=== PATIENT | male | born 1990 | race Two or more races ===

== ENCOUNTER 2023-05-29 12:23 | Outpatient (CLI) | payer OTHER ==
--- NOTE | 2023-05-29 21:55 | SLEEP CARE CONSULTATION ---
Information from patient questionnaire entered by Shelley Bhardwaj. I have reviewed and concur with the information entered by Shelley Bhardwaj. This document represents the service I personally performed and the decisions made by me, Inna Branham MD, [facility]. History of Present Illness Service Date and Time: 05/29/2023 1223 Reason for Visit: New patient Chief Complaint: reports: Insomnia, Unrefreshed sleep, Snoring, Excessive daytime sleepiness, Observed pauses in breathing, Fatigue, Frequent awakenings at night Date of Onset: 2-3YRS Usual bedtime: 22-2300 Time it takes to fall asleep: 15-40MIN Snores at night: Yes Observed to quit breathing while asleep: Yes Sleeps alone due to snoring: No Number of times waking at night: 1 Reasons for waking at night: reports: Snoring, Other (NOISE, HEAR MYSELF SNORING OR HOLDING MY BREATH OR ITS NIGHTMARE) Toss, Turn, or Twitch while sleeping: Yes Recalls having dreams: Yes Usually gets out of bed at: 5-7AM Feels refreshed in the morning: No Morning headache: Yes Sleepy or fatigued during the day: Yes Ever fallen asleep while driving: Yes Takes day naps: Yes Dreams during day naps: No Prior sleep studies: No Additional HPI information: I had the pleasure of seeing Mr. Desai today regarding the possibility of him having a sleep disorder. As you know, he is a 33-year-old gentleman who complains of frequent awakenings, unrefreshed sleep, loud snore, observed apneas, and excessive daytime sleepiness for the past 2 3 years. He is from the [place] and would like to have it checked out whether he has any sleep disorders. The patient tells me that he normally goes to bed around 10 - 11 pm, and it takes him approximately 15 - 40 minutes to fall asleep. He has been told that he snores loudly and irregularly at night. He has also been observed to stop breathing in his sleep. His normally sleeps alone. He can recall waking up on the average of 0 - 1 time during the night. Most of the time he wakes up because of own snoring, choking, and having to gasp for air. There is a lot of tossing and turning in his sleep. He has somniloquy (sleep talking) or somnambulism (sleep walking). Generally, he can recall having dreams. In the morning he usually gets up out of the bed around 5 - 7 a.m. not feeling refreshed nor rested. He occasionally has a morning headache. During the day he complains of feeling sleepy and fatigued. His score on [place] Sleepiness Scale is 18 out of 24. He has fallen asleep while driving and has gone out of the minda. He usually takes a nap during the day after work. He reports having impaired concentration during the day. - Parasomnia Symptoms Ever been unable to move upon waking from sleep: Yes Walks in sleep: No Talks in sleep: Yes Ever acted out dreams in sleep: Yes Ever felt weak in the knees when startled or emotional: Yes Bothered by creepy, crawly, restless sensations in legs: Yes Problems with memory or concentration: Yes Subjective Initial [place] Sleepiness Scale score: 18 (05/29/23) Social History The patient's occupation is a AM. Patient is Single and lives in . Have you smoked in the past 12 months: No Alcohol use: Yes Alcohol amount and frequency: 2-4 DRINKS A MONTH Caffeine use: Yes Caffeine amount and frequency: 1-2 CUPS 4-5 DAYS A WEEK Family History Family history of sleep disordered breathing: Yes Family Hx Sleep Apnea: Father: Snoring, Sleep apnea - Untreated Allergies and Home Medications Known drug allergies: No Drug allergies reviewed: Yes Home medication list reviewed: Yes Review of Systems Weight gain over past 5 years: 15-20 Cardiovascular: denies: high blood pressure, palpitations, chest pain, irregular heart rate or pulse, leg or foot swelling, have to sleep sitting up, other Respiratory: denies: shortness of breath, wheeze, sputum production, chronic cough, other Gastrointestinal: denies: heartburn, difficulty swallowing, nausea, vomitting, diarrhea, abdominal pain, other Urinary: denies: incontinence, frequency, urgency, impotence, other Neurological: denies: headaches, seizure, head trauma, disorientation, speech dysfunction, gait or balance problems, fainting or unconsciousness, other Psychiatric: denies: Attention Deficit Hyperactivity, anxiety, depression, mood disorder, claustrophobia, other Ear/Nose/Throat: denies: nasal congestion, sinus problems, nose bleeds, dry mouth/throat, hoarseness, injury to nose, tonsillectomy, wisdom teeth removed, other Endocrine: denies: thyroid disease, history of goiter, sluggishness, too hot or cold, excessive thirst, increased appetite, increased urination, unexplained weakness, other Musculoskeletal: denies: joint pain, neck pain, back pain, joint swelling, muscle pain or cramping, mobility problems, other Immunologic: reports: allergies to food or environment. denies: sneezing, rash, itching, other Physical Exam Vital signs obtained and entered by: SHELLEY Spence MA Blood Pressure: 120/74 (LEFT ARM) Cuff size: regular Heart Rate: 58 O2 Saturation: 98 Height: 5 ft 7 in Weight: 175 lb Body Mass Index: 27.3 BMI Classification: Overweight Neck circumference: 15.25 Mood/affect: Normal HEENT: No craniofacial malformation Nostrils: patent to airflow Turbinates: normal Septum: midline Mouth and throat: narrow oropharynx Soft palate: long Hard palate: normal Uvula visualization: 50% Mallampati Class II Tongue: normal in size Tonsils: small Chin and jaw: normal size and position Neck: normal w/o lymphadenopathy or thyromegaly Heart: regular rate and rhythm Lungs: clear bilaterally Extremities: no edema or clubbing Neurologic: intact Impression and Plan IMPRESSION: 1. Obstructive Sleep Apnea-Hypopnea Syndrome, as suggested by history of loud and irregular snoring, observed cessation of breath while asleep, nocturnal choking, unrefreshed sleep, cognitive impairment, and daytime hypersomnolence. Narrow oropharynx and obesity are common predisposing factors for obstructive sleep apnea-hypopnea syndrome. I recommend proceeding to polysomnography to confirm the diagnosis and to assess severity. If he has significant sleep disordered breathing, a manual CPAP titration study will also be performed to find the optimal treatment pressure. I informed the patient of what the sleep studies involve and after some discussion, he agreed to proceed. Plan: 1. Schedule an in-laboratory polysomnography and return in 1 to 2 weeks after the study to discuss result and initiate therapy. Follow up with Sleep Care in: 1-2 months Visit Type: In Office Time Spent with Patient (minutes): 15 Provider Statement: I spent 100% of the Face to Face Visit with the patient with greater than 50% spent counseling the patient and coordination of care.
[2023-05-29 22:00] VITALS: BP 120/74; O2SAT 98
== END 2023-05-29 12:24 | disposition home or self-care (01) ==
LOC: SC 12:23
PROVIDERS: ATTEND Internal Medicine Pulmonary Disease
DX: R06.83 Snoring (principal); G47.8 Other sleep disorders; R06.81 Apnea, not elsewhere classified; G47.50 Parasomnia, unspecified; G47.10 Hypersomnia, unspecified; E66.3 Overweight; Z68.27 Body mass index [BMI] 27.0-27.9, adult
CPT/HCPCS: 99202; 99212

== ENCOUNTER 2023-06-20 20:32 | Outpatient (CLI) | payer OTHER | END 2023-06-20 20:33 | disposition home or self-care (01) | LOC: SC 20:32 | PROVIDERS: ATTEND Internal Medicine Pulmonary Disease | DX: R06.83 Snoring (principal); G47.8 Other sleep disorders; R06.81 Apnea, not elsewhere classified; G47.50 Parasomnia, unspecified; G47.10 Hypersomnia, unspecified | CPT/HCPCS: 95810 ==

== ENCOUNTER 2023-06-26 13:23 | Outpatient (CLI) | payer OTHER ==
--- NOTE | 2023-06-26 21:45 | SLEEP CARE CONSULTATION ---
Information from patient questionnaire entered by Evie Bhardwaj. I have reviewed and concur with the information entered by Evie Bhardwaj. This document represents the service I personally performed and the decisions made by me, Inna Branham MD, [facility]. History of Present Illness Service Date and Time: 06/26/2023 1323 Initial [place] Sleepiness Scale score: 18 (05/29/23) Current [place] Sleepiness Scale score: 19 (06/26/23) Additional HPI information: Mr. Zarco returned for follow up of the sleep study he had on 06/20/2023. The polysomnography showed that the patient had normal sleep efficiency. The sleep architecture was abnormal for mild sleep fragmentation and reduced amount of time spent in slow wave sleep (N3). Respiratory monitoring showed no significant sleep disordered breathing (AHI = 3.7) or hypoxia (samantha oxygen saturation of 85% and only 0.25% to the total sleep time was spent with oxygen saturation below 90%). The respiratory events occurred mainly during supine REM sleep (supine AHI = 4.8; non-supine = 0.56). Snore was moderate to loud in intensity. There was no significant periodic leg movement of sleep. Cardiac rhythm was normal sinus rhythm without significant arrhythmia. No abnormal behavior (parasomnia) observed during the night. The patient was informed of these findings. I explained to him that the sleep study was normal. Sleep Study - Results Type of Sleep Study: Polysomnography (COMPLETED 06/20/2023) Prior sleep studies: No Allergies and Home Medications Drug allergies reviewed: Yes Home medication list reviewed: Yes Allergy and home medication list: Allergies No Known Drug Allergies Allergy (Verified 05/29/23 12:57) Review of Systems Review of systems same as previous: Yes Physical Exam Vital signs obtained and entered by: EVIE Spence MA Blood Pressure: 130/78 (LEFT ARM) Cuff size: regular Heart Rate: 65 O2 Saturation: 99 Height: 5 ft 7 in Weight: 174 lb 9.6 oz Body Mass Index: 27.3 BMI Classification: Overweight Impression and Plan IMPRESSION: 1. Primary Snore (ICD-10 R06.83), moderate to loud, but no significant sleep disordered breathing. No treatment is necessary. PLAN: 1. Return for a follow up on as needed basis. Follow up with Sleep Care in: as needed Visit Type: In Office Time Spent with Patient (minutes): 15 Provider Statement: I spent 100% of the Face to Face Visit with the patient with greater than 50% spent counseling the patient and coordination of care.
[2023-06-26 21:54] VITALS: BP 130/78; O2SAT 99
== END 2023-06-26 13:24 | disposition home or self-care (01) ==
LOC: SC 13:23
PROVIDERS: ATTEND Internal Medicine Pulmonary Disease
DX: R06.83 Snoring (principal); E66.3 Overweight; Z68.27 Body mass index [BMI] 27.0-27.9, adult
CPT/HCPCS: 99212

== ENCOUNTER 2023-07-10 07:02 | Outpatient (CLI) | payer OTHER ==
--- NOTE | 2023-07-10 16:58 | MRI Report ---
PROCEDURE: CERVICAL SPINE WO INDICATIONS: CERVICALGIA TECHNIQUE: Noncontrast sagittal T1 spin echo and T2 fast spin echo, sagittal STIR, foraminal oblique sagittal T2 fast spin echo, and axial gradient echo or T2 fast spin echo through the cervical spine. COMPARISON: None. FINDINGS: Image quality: Excellent. Alignment and Curvature: There is loss of normal cervical lordosis. 2 mm of retrolisthesis of C5 on C6. Bone Marrow: Marrow demonstrates normal overall signal. Mild reactive signal throughout the endplat es of the cervical spine. Spinal Cord: Visualized spinal cord has normal size and signal. No cerebellar tonsillar herniation. Paraspinous Soft Tissues: No paravertebral masses. Prevertebral soft tissues are normal in thicknes s. C2-C3: Normal in appearance. C3-C4: Mild disc desiccation and diffuse disc bulge. Mild canal stenosis. No foraminal stenosis. C4-C5: Mild disc desiccation and diffuse disc bulge. Mild facet and uncovertebral hypertrophy. Mild canal stenosis. Mild bilateral foraminal stenosis. C5-C6: Mild disc desiccation and diffuse disc bulge. Mild facet and uncovertebral hypertrophy. Mild canal stenosis. Moderate bilateral foraminal stenosis. C6-C7: Normal in appearance. C7-T1: Normal in appearance. IMPRESSION: 1. Multilevel degenerative disc and facet disease, as well as uncovertebral hypertrophy. 2. Mild multilevel canal stenoses. 3. Multilevel foraminal stenoses, worst at C5-C6 where there are moderate foraminal stenoses. Reviewed by: Abhay Romero MD on 07/10/2023 4:56 PM PST Approved by: Abhay Romero MD on 07/10/2023 4:56 PM PST Station ID: [id number]
== END 2023-07-10 07:03 | disposition home or self-care (01) ==
LOC: DI 07:02
PROVIDERS: ATTEND Preventive Medicine Aerospace Medicine
DX: M47.812 Spondylosis without myelopathy or radiculopathy, cervical region (principal); M50.31 Other cervical disc degeneration, high cervical region; M48.02 Spinal stenosis, cervical region